=== PATIENT | male | born 1940 | race Caucasian/White ===

== ENCOUNTER 2018-05-02 21:59 | Inpatient (IN) | payer OTHER, MEDICARE ==
[~2018-05-02] VITALS: Ht 180.3 cm; Wt 104.3 kg
[2018-05-02] MEDS ORDERED: AMLO5 PO (22:51)
[2018-05-02] MEDS ORDERED: ATOR10 PO (22:52)
[2018-05-02] MEDS ORDERED: DONE5 PO (22:53)
[2018-05-02] MEDS ORDERED: Flunisolide25 ML NS (22:54)
[2018-05-02] MEDS ORDERED: Novolog Fl100 UNIT/1 SQ (22:54)
[2018-05-02] MEDS ORDERED: LEVSOD88 PO (22:55)
[2018-05-02] MEDS ORDERED: INSUGL100V (22:55)
[2018-05-02] MEDS ORDERED: METF500C PO (22:55)
[2018-05-02] MEDS ORDERED: ISOMON20 (22:55)
[2018-05-02] MEDS ORDERED: LISI20 PO (22:56)
[2018-05-02] MEDS ORDERED: METO25ER PO ×2 (22:56)
[2018-05-02] MEDS ORDERED: Prilosec Otc20 MG (22:57)
[2018-05-02 22:58] LABS: BASOPHILS ABSOLUTE AUTO 0.03 K/mm3 (0.00-0.23); BASOPHILS PERCENT AUTO 0 % (0-2); EOSINOPHILS ABSOLUTE AUTO 0.13 K/mm3 (0.00-0.68); EOSINOPHILS PERCENT AUTO 1 % (0-6); Hematocrit 38.5 % (37.0-53.0); IMMATURE GRAN ABSOLUTE AUTO 0.02 K/mm3 (0.00-0.10); IMMATURE GRAN PERCENT AUTO 0 % (0-1); LYMPHOCYTES ABSOLUTE AUTO 2.58 K/mm3 (0.84-5.20); LYMPHOCYTES PERCENT AUTO 28 % (21-46); MONOCYTES ABSOLUTE AUTO 0.66 K/mm3 (0.16-1.47); MONOCYTES PERCENT AUTO 7 % (4-13); Mean Corpuscular HGB 31.4 pg (26.0-34.0); Mean Corpuscular HGB Conc 33.8 g/dL (31.5-36.5); Mean Corpuscular Volume 93 fL (80-100); Mean Platelet Volume 10.5 fL (9.1-12.4); NEUTROPHILS ABSOLUTE AUTO 5.76 K/mm3 (1.96-9.15); NEUTROPHILS PERCENT AUTO 63 % (41-73); Platelet Count 111 K/mm3 (150-400); RDW Coefficient Variation 11.9 % (11.7-14.2); RDW Standard Deviation 41.2 fL (35.1-46.3); Red Blood Cell Count 4.14 M/mm3 (4.30-5.90); White Blood Cell Count 9.18 K/mm3 (4.00-11.30)
[2018-05-02] MEDS ORDERED: TAMS.4ER PO (22:58)
[2018-05-02] MEDS ORDERED: RANI150EL (22:58)
[2018-05-02 23:11] LABS: Alanine Aminotransfer (ALT/SGP 37 U/L (12-78); Albumin, Blood 4.1 g/dL (3.4-5.0); Albumin/Globulin Ratio 1.3 (0.8-1.8); Alk Phos 68 U/L (50-136); Anion Gap 9 mmol/L (6-16); Aspartate Aminotrans (AST/SGOT 24 U/L (12-37); Bilirubin, Total 0.6 mg/dL (0.1-1.0); Blood Urea Nitrogen 14 mg/dL (8-24); Bun/Creatinine Ratio 13.3 (12.0-20.0); CO2, Blood 25 mmol/L (21-32); Calcium, Blood 8.7 mg/dL (8.5-10.1); Chloride, Blood 99 mmol/L (98-108); Creatinine, Blood 1.05 mg/dL (0.60-1.20); Globulin, Blood 3.2 g/dL (2.2-4.0); Glomerular Filtration Rate >60 (60-); Glucose, Blood 170 mg/dL (70-99); Potassium, Blood 4.1 mmol/L (3.5-5.5); Sodium, Blood 133 mmol/L (136-145); Total Protein, Blood 7.3 g/dL (6.4-8.2); Troponin I <0.015 ng/mL (0.000-0.040)
[2018-05-03] MEDS ORDERED: METF850 PO (00:10)
[2018-05-03] MEDS ORDERED: PSYSENPA PO (00:13)
[2018-05-03] MEDS ORDERED: NITR.4SL PO (00:14)
[2018-05-03] MEDS ORDERED: CARB10OTL MT (02:34)
[2018-05-03] MEDS ORDERED: DONE5 PO (02:34)
[2018-05-03] MEDS ORDERED: FLUNISOLIDE (02:39)
[2018-05-03] MEDS ORDERED: CHOL10002 (02:41)
[2018-05-03] MEDS ORDERED: ISOMON20 (02:41)
[2018-05-03] MEDS ORDERED: HEARTBURN RELI150 M1 PO (02:42)
[2018-05-03 05:12] LABS: Anion Gap 7 mmol/L (6-16); Blood Urea Nitrogen 15 mg/dL (8-24); Bun/Creatinine Ratio 15.4 (12.0-20.0); CO2, Blood 27 mmol/L (21-32); Calcium, Blood 8.6 mg/dL (8.5-10.1); Chloride, Blood 101 mmol/L (98-108); Creatinine, Blood 0.98 mg/dL (0.60-1.20); Glomerular Filtration Rate >60 (60-); Glucose, Blood 245 mg/dL (70-99); Magnesium, Blood 1.8 mg/dL (1.6-2.4); Potassium, Blood 4.1 mmol/L (3.5-5.5); Sodium, Blood 135 mmol/L (136-145)
== END 2018-05-04 13:57 | disposition short-term general hospital (02) | DRG 287 ==
LOC: ER 21:59 → PCU 05-03 00:10
PROVIDERS: Emergency Medicine; Hospitalist
PROC: 4A023N7 Measurement of Cardiac Sampling and Pressure, Left Heart, Percutaneous Approach (ICD-10-PCS; principal; 2018-05-03)
PROC: B211YZZ Fluoroscopy of Multiple Coronary Arteries using Other Contrast (ICD-10-PCS; 2018-05-03)
DX: I44.2 Atrioventricular block, complete (principal); E11.9 Type 2 diabetes mellitus without complications; Z79.4 Long term (current) use of insulin; K21.9 Gastro-esophageal reflux disease without esophagitis; N40.0 Benign prostatic hyperplasia without lower urinary tract symptoms; E78.5 Hyperlipidemia, unspecified
CPT/HCPCS: 36415; 80048; 80053; 82947; 83735; 84443; 84484; 85025; 90686; 93005; 93010; 93306; 93458; 94760; 99152; 99285-25; C1769; C1894; G0008; J0461; J1644; J1650; J1815; J2250; J3010; J7030; Q9967

== ENCOUNTER 2022-08-22 15:37 | Inpatient (IN) | payer OTHER ==
[~2022-08-22] VITALS: Ht 182.9 cm; Wt 89.2 kg
[~2022-08-22 15:37] MED LIST: AMLO5 PO; ATOR40TA PO; BASAGLAR K100 UNIT/3 SC; CARB10OTL MT; CHOL10002; DONE5 PO; FLUNISOLIDE; Flunisolide25 ML NS; HEARTBURN RELI150 M1 PO; ISOMON20; LEVSOD88 PO; LISI20 PO; METF500C PO; METF850 PO; METO25ER PO; NITR.4SL PO; Novolog Fl100 UNIT/1 SQ; PSYSENPA PO; Prilosec Otc20 MG; RANI150EL; TAMS.4ER PO
[2022-08-22 16:23] LABS: BASOPHILS ABSOLUTE AUTO 0.03 K/mm3 (0.00-0.23); BASOPHILS PERCENT AUTO 0 % (0-2); EOSINOPHILS ABSOLUTE AUTO 0.22 K/mm3 (0.00-0.68); EOSINOPHILS PERCENT AUTO 3 % (0-6); Hematocrit 43.1 % (37.0-53.0); Hemoglobin 14.2 g/dL (13.5-17.5); IMMATURE GRAN ABSOLUTE AUTO 0.01 K/mm3 (0.00-0.10); IMMATURE GRAN PERCENT AUTO 0 % (0-1); LYMPHOCYTES ABSOLUTE AUTO 2.48 K/mm3 (0.84-5.20); LYMPHOCYTES PERCENT AUTO 32 % (21-46); MONOCYTES ABSOLUTE AUTO 0.69 K/mm3 (0.16-1.47); MONOCYTES PERCENT AUTO 9 % (4-13); Mean Corpuscular HGB 30.3 pg (26.0-34.0); Mean Corpuscular HGB Conc 32.9 g/dL (31.5-36.5); Mean Corpuscular Volume 92 fL (80-100); Mean Platelet Volume 10.6 fL (9.1-12.4); NEUTROPHILS ABSOLUTE AUTO 4.42 K/mm3 (1.96-9.15); NEUTROPHILS PERCENT AUTO 56 % (41-73); Platelet Count 113 K/mm3 (150-400); RDW Standard Deviation 43.8 fL (35.1-46.3); Red Blood Cell Count 4.68 M/mm3 (4.30-5.90); White Blood Cell Count 7.85 K/mm3 (4.00-11.30)
[2022-08-22 16:43] LABS: Albumin, Blood 3.9 g/dL (3.4-5.0); Albumin/Globulin Ratio 1.4 (0.8-1.8); Bilirubin, Total 0.7 mg/dL (0.1-1.0); Bun/Creatinine Ratio 14.1 (12.0-20.0); Calcium, Blood 9.3 mg/dL (8.5-10.1); Globulin, Blood 2.8 g/dL (2.2-4.0); Total Protein, Blood 6.7 g/dL (6.4-8.2)
[2022-08-22] MEDS ORDERED: JARDIANCE25 MG PO (20:14)
[2022-08-22] MEDS ORDERED: METO50ER PO (20:15)
[2022-08-22] MEDS ORDERED: LOSA25 PO (20:15)
--- NOTE | 2022-08-22 23:33 | NUR ---
UPDATE DR. TANNER AT BEDSIDE WHEN PT ARRIVED TO UNIT. PLAN FOR PT TO BE MONITORED ON TELEMETRY FOR 2 DAYS TO SEE IF HOME METOPROLOL IS CAUSING BRADYCARDIA. IF PT CONT TO HAVE BRADYCARDIA PLAN FOR PACER PLACEMENT MONDAY. ORDERS FOR 1 MG OF ATROPINE AND 1 MG OF EPI IF PT BECOMES SYMPTOMATIC WITH BRADYCARIA. ZOLL AT BEDSIDE PER PHYSICIAN ORDER. WILL CONT TO MONITOR AND UPDATE CARDIOLOGY NEEDED. VSS AT THIS TIME.
[2022-08-23 04:19] LABS: BASOPHILS ABSOLUTE AUTO 0.05 K/mm3 (0.00-0.23); BASOPHILS PERCENT AUTO 1 % (0-2); EOSINOPHILS ABSOLUTE AUTO 0.35 K/mm3 (0.00-0.68); EOSINOPHILS PERCENT AUTO 4 % (0-6); Hematocrit 40.9 % (37.0-53.0); Hemoglobin 13.9 g/dL (13.5-17.5); IMMATURE GRAN ABSOLUTE AUTO 0.03 K/mm3 (0.00-0.10); IMMATURE GRAN PERCENT AUTO 0 % (0-1); LYMPHOCYTES ABSOLUTE AUTO 2.91 K/mm3 (0.84-5.20); LYMPHOCYTES PERCENT AUTO 33 % (21-46); MONOCYTES ABSOLUTE AUTO 0.81 K/mm3 (0.16-1.47); MONOCYTES PERCENT AUTO 9 % (4-13); Mean Corpuscular HGB 30.8 pg (26.0-34.0); Mean Corpuscular Volume 91 fL (80-100); Mean Platelet Volume 10.3 fL (9.1-12.4); NEUTROPHILS ABSOLUTE AUTO 4.69 K/mm3 (1.96-9.15); NEUTROPHILS PERCENT AUTO 53 % (41-73); Platelet Count 116 K/mm3 (150-400); RDW Coefficient Variation 12.9 % (11.7-14.2); RDW Standard Deviation 42.4 fL (35.1-46.3); Red Blood Cell Count 4.52 M/mm3 (4.30-5.90); White Blood Cell Count 8.84 K/mm3 (4.00-11.30)
--- NOTE | 2022-08-23 06:11 | NUR ---
RECIEVED PT FROM ER, EXTREMELY PLEASANT AND COOPERATIVE, 2ND DEGREE BLOCK TYPE 2 ON TELE RATE IN THE 30'S-40'S FOR THE MOST PART, CARD CONSULT, EPI AND ATROPINE TAPE TO DRY ERASE BOARD PER ORDERS, PACER PADS ON PT AND ZOLL AT BS, PT ON RA, LABILE B/P'S, PT ASYMPTOMATIC THROUGHOUT SHIFT, UP TO USE URINAL AND REPOSITIONING IN BED INDEPENDENTLY, ON RA, AFEBRILE, ALL NEEDS MET AND QUESTIONS ANSWERED
[2022-08-23 09:23] LABS: Bun/Creatinine Ratio 18.4 (12.0-20.0); Calcium, Blood 9.2 mg/dL (8.5-10.1); Creatinine, Blood 0.93 mg/dL (0.60-1.20); Potassium, Blood 3.5 mmol/L (3.5-5.5)
--- NOTE | 2022-08-23 18:33 | NUR ---
PT SUMMARY: PT POST PACEMAKER PLACEMENT DUAL CHAMBER TODAY PT WAS BACK IN THE ROOM AT APPROX 1500, PT HAS LEFT UPPER CHEST WALL SITE, DRESSING REMAINED CLEAN DRY AND INTACT AND WNL, LEFT ARM SLING PLACED ON PT AND WAS INSTRUCTED ABOUT RIGHT ARM RESTRICTIONS, PT VERBALIZED UNDERSTANDING, AND DAUGHTER AT THE BEDSIDE WAS GIVEN UPDATE REGARDING PT'S STATUS, PT TO DISCHARGE IN AM IF STABLE. VITALS HRR NOW PACED RATE SET AT 60-120'S, SBP 140'S-150'S, PT WAS ALSO RESTARTED ON HOME METOPROLOL DOSE, SATS HAS BEEN ABOVE 95% ON RA, AFEBRILE. PT HAS BEEN GETTING UP TO USE THE URINAL, DIET RESUMED TOLERATED WELL. PT C/O SORENESS AT THE SITE AT THIS MOMENT WILL MEDICATE WILL TYLENOL, ACETAMINOPHEN LISTED ON ALLERGY LIST VERIFIED WITH THE PT, PT STATED IT WAS JUST A MILD REACTION AN UPSET STOMACH, PHARMACIST NOTIFIED. NO OTHER ISSUES AT THIS TIME, PT ABLE TO MAKE NEEDS KNOWN, CALL LIGHTS IN REACH WILL REPORT TO ONCOMING SHIFT
--- NOTE | 2022-08-23 21:19 | NUR ---
ASSUMPTION OF CARE THIS RN ASSUMED CARE OF PATIENT AT 1900. REPORT TAKEN FROM JERI PEREZ. PATIENT BEING PACED 60-70'S ON MONITOR. BP STABLE. AFEBRILE. SPO2 >92% ON RA. PACEMAKER PLACEMENT IN LEFT CHEST WALL. DRESSING WITH SLIGHT RED DISCHARGE, OTHERWISE C/D/I. NO SUBCUTANEOUS EMPHYSEMA PALPATED AROUND SITE. PATIENT ENDORSES MILD SORENESS AT SITE; MEDICATED PER EMAR. LEFT SLING IN PLACE. THIS RN REINFORCED EDUCATION ON RESTRICTIONS OF LEFT ARM MOVEMENT. PATIENT AND DAUGHTER PRESENT FOR EDUCATION AND BOTH VERBALIZED UNDERSTANDING. PULSES STRONG THROUGHOUT. LS CLEAR THROUGHOUT. BED IN LOWEST POSITION AND CALL LIGHT WITHIN REACH. THIS RN WILL CONTINUE TO MONITOR AND PROVIDE INTERVENTIONS NEEDED/ORDERED DURING THIS SHIFT.
[2022-08-24 04:06] LABS: BASOPHILS ABSOLUTE AUTO 0.03 K/mm3 (0.00-0.23); BASOPHILS PERCENT AUTO 0 % (0-2); EOSINOPHILS ABSOLUTE AUTO 0.25 K/mm3 (0.00-0.68); EOSINOPHILS PERCENT AUTO 3 % (0-6); Hematocrit 42.3 % (37.0-53.0); Hemoglobin 14.6 g/dL (13.5-17.5); IMMATURE GRAN ABSOLUTE AUTO 0.03 K/mm3 (0.00-0.10); IMMATURE GRAN PERCENT AUTO 0 % (0-1); LYMPHOCYTES PERCENT AUTO 21 % (21-46); MONOCYTES ABSOLUTE AUTO 0.85 K/mm3 (0.16-1.47); MONOCYTES PERCENT AUTO 10 % (4-13); Mean Corpuscular HGB 30.9 pg (26.0-34.0); Mean Corpuscular HGB Conc 34.5 g/dL (31.5-36.5); Mean Corpuscular Volume 89 fL (80-100); Mean Platelet Volume 10.2 fL (9.1-12.4); NEUTROPHILS ABSOLUTE AUTO 5.67 K/mm3 (1.96-9.15); NEUTROPHILS PERCENT AUTO 66 % (41-73); Platelet Count 111 K/mm3 (150-400); RDW Coefficient Variation 12.7 % (11.7-14.2); RDW Standard Deviation 41.6 fL (35.1-46.3); Red Blood Cell Count 4.73 M/mm3 (4.30-5.90); White Blood Cell Count 8.63 K/mm3 (4.00-11.30)
[2022-08-24 04:44] LABS: Bun/Creatinine Ratio 18.6 (12.0-20.0); Calcium, Blood 9.1 mg/dL (8.5-10.1); Creatinine, Blood 0.91 mg/dL (0.60-1.20); Potassium, Blood 3.7 mmol/L (3.5-5.5)
--- NOTE | 2022-08-24 05:02 | NUR ---
SHIFT SUMMARY NO ACUTE CHANGES OVERNIGHT. MEDICATED FOR PAIN WITH TYLENOL WITH GOOD RESULTS. VITALS STABLE. PACED AT 60'S. LEFT CHEST WALL DRESSING INTACT; SMALL SANGUINOUS DRAINAGE NOTED. NO SUBCUTANEOUS EMPHYSEMA NOTED. PATIENT WIHT LEFT ARM SLING IN PLACE. UNDERSTANDS MOVEMENT RESTRICTIONS OF LEFT ARM. CONTINUAL EDUCATION REINFORCEMENT GIVEN. PATIENT IS ABLE TO MAKE NEEDS KNOWN. BED IN LOWEST POSITION AND CALL LIGHT WITHIN REACH. THIS RN WILL CONTINUE TO MONITOR UNTIL SHIFT CHANGE AT 0700.
[2022-08-24] MEDS ORDERED: ASPI81CH PO (10:57)
[2022-08-24] MEDS ORDERED: CEPH500 PO (11:09)
[2022-08-24] MEDS ORDERED: FINA5 PO (11:12)
[2022-08-24] MEDS ORDERED: OMEP20ER PO (11:12)
--- NOTE | 2022-08-24 15:11 | NUR ---
PT DISCHARGE TO HOME TODAY WITH DISCHARGE ORDERS, DISCLOSED ALL DISCHARGE INFORMATION AND INSTRUCTION WITH BOTH THE PT AND THE AT THE BEDSIDE, SENT POST PACEMAKER PLACEMENT INSTRUCTION PACKET, MANUAL FOR THE PACER AND SCHEDULED APPTS FOR WOUND CARE CHECK AND CARDIOLOGY APPT. PRESCRIPTION SENT TO THE [facility], HARD SCRIPT FOR REJI ANTIBIOTIC SENT WITH THE PT WELL. PT SENT HOME WITH THE SLING ON LEFT ARM COMPLIANT WITH IMMOBILIZING IT. ALL BELONGINGS SENT WITH THE PT, PROVIDED TRANSPORTATION, ACCOMPANIED VIA WHEELCHAIR FOR TRANSPORT
== END 2022-08-24 13:14 | disposition home or self-care (01) | DRG 244 ==
LOC: ER 15:37 → PCU 17:33
PROVIDERS: Student in an Organized Health Care Education/Training Program; ADMIT Internal Medicine
PROC: 0JH606Z Insertion of Pacemaker, Dual Chamber into Chest Subcutaneous Tissue and Fascia, Open Approach (ICD-10-PCS; principal; 2022-08-23)
PROC: 02H63JZ Insertion of Pacemaker Lead into Right Atrium, Percutaneous Approach (ICD-10-PCS; 2022-08-23)
PROC: 02HK3JZ Insertion of Pacemaker Lead into Right Ventricle, Percutaneous Approach (ICD-10-PCS; 2022-08-23)
DX: I44.1 Atrioventricular block, second degree (principal); I25.10 Atherosclerotic heart disease of native coronary artery without angina pectoris; N40.0 Benign prostatic hyperplasia without lower urinary tract symptoms; E11.9 Type 2 diabetes mellitus without complications; K21.9 Gastro-esophageal reflux disease without esophagitis; I10 Essential (primary) hypertension; E03.9 Hypothyroidism, unspecified; R00.1 Bradycardia, unspecified; D69.6 Thrombocytopenia, unspecified; E78.00 Pure hypercholesterolemia, unspecified; J34.2 Deviated nasal septum; Z95.1 Presence of aortocoronary bypass graft; Z88.8 Allergy status to other drugs, medicaments and biological substances; Z88.5 Allergy status to narcotic agent; Z88.1 Allergy status to other antibiotic agents; Z79.899 Other long term (current) drug therapy; Z79.02 Long term (current) use of antithrombotics/antiplatelets; Z79.4 Long term (current) use of insulin; Z79.84 Long term (current) use of oral hypoglycemic drugs; Z87.891 Personal history of nicotine dependence
CPT/HCPCS: 33208; 36415; 71045; 71046; 76937; 80048; 80053; 82947; 83735; 84439; 84443; 84484; 85025; 93005; 93010; 93306; 99152; 99153; 99285-25; A9270; C1781; C1785; C1894; C1898; G0378; J0690; J1644; J1815; J2250; J3010; J7030; J7040